=== PATIENT | male | born 1990 | race African-American/Black ===

== ENCOUNTER → 2020-09-06 10:58 | Outpatient (BNVA) | payer OTHER, SELFPAY | PROVIDERS: Visit Provider Physician Assistant Medical | DX: G56.03 Carpal tunnel syndrome, bilateral upper limbs (principal); S63.502A Unspecified sprain of left wrist, initial encounter; S63.501A Unspecified sprain of right wrist, initial encounter; X58.XXXA Exposure to other specified factors, initial encounter | CPT/HCPCS: 29125; 99203 ==

== ENCOUNTER → 2020-09-10 08:28 | Outpatient (BNVA) | payer OTHER, SELFPAY | PROVIDERS: Visit Provider Physician Assistant Medical | DX: S63.502D Unspecified sprain of left wrist, subsequent encounter (principal); S63.501D Unspecified sprain of right wrist, subsequent encounter; X58.XXXD Exposure to other specified factors, subsequent encounter; G56.03 Carpal tunnel syndrome, bilateral upper limbs | CPT/HCPCS: 73110; 73130; 99214 ==

== ENCOUNTER → 2020-09-17 09:55 | Outpatient (BNVA) | payer OTHER, SELFPAY | PROVIDERS: Visit Provider Physician Assistant Medical | DX: S63.501D Unspecified sprain of right wrist, subsequent encounter (principal); X58.XXXD Exposure to other specified factors, subsequent encounter; G56.01 Carpal tunnel syndrome, right upper limb | CPT/HCPCS: 99213 ==

== ENCOUNTER → 2020-09-23 09:29 | Outpatient (BNVA) | payer OTHER, SELFPAY | PROVIDERS: Visit Provider Physician Assistant Medical | DX: S63.501D Unspecified sprain of right wrist, subsequent encounter (principal); S63.502D Unspecified sprain of left wrist, subsequent encounter; X58.XXXD Exposure to other specified factors, subsequent encounter; G56.03 Carpal tunnel syndrome, bilateral upper limbs | CPT/HCPCS: 99213 ==

== ENCOUNTER 2020-10-05 08:30 | Outpatient (RCR) | payer OTHER, BC, SELFPAY ==
--- NOTE | 2020-10-15 09:18 | MHC.OT.DC ---
[address] [phone] F: [phone] Occupational Therapy Discharge Note Provider: Janessa Martel Diagnosis: Bilateral wrist sprain/carpal tunnel right > left Date of Surgery: Date of Evaluation: 09/16/20 Date of Discharge: Treatments to Date: 6 Cancellations to Date: 1 No Shows to Date: 0 Discharge Status: Achieved Goals Improved Function Independent with HEP Discharge Summary: Pt cx last appt and has no scheduled appt at this time. Complaint of right middle finger pain occassional low. Intermittent right dorsal wrist pain improved. New c/o mild occassional ulnar wrist pain. Unable to elicit pain today. Tolerated 20 min simulated work without inc sx. Denies CTS sx Electronically Signed By: Nessa Granda OT, CHT, CLT Reviewed/agree with student documentation: N/A Therapist: Please Sign and return to therapist, thank you for your referral.
== END 2020-10-15 09:19 | disposition other institution (70) ==
LOC: HO.OT 08:30
PROVIDERS: Visit Provider Physician Assistant Medical
DX: S63.512A Sprain of carpal joint of left wrist, initial encounter (principal); S63.511A Sprain of carpal joint of right wrist, initial encounter
CPT/HCPCS: 97033; 97035; 97110; 97165; 97530

== ENCOUNTER → 2020-10-08 09:18 | Outpatient (BNVA) | payer OTHER, SELFPAY | PROVIDERS: Visit Provider Physician Assistant Medical | DX: S63.512D Sprain of carpal joint of left wrist, subsequent encounter (principal); S63.511D Sprain of carpal joint of right wrist, subsequent encounter; X58.XXXD Exposure to other specified factors, subsequent encounter | CPT/HCPCS: 99213 ==

== ENCOUNTER 2020-10-18 09:13 | Outpatient (REF) | payer OTHER, SELFPAY ==
--- NOTE | ~2020-10-18 | XR_ITS ---
EXAMINATION: XR WRIST, RIGHT CLINICAL INFORMATION: Pain right wrist. COMPARISON: Radiographs right hand wrist 09/10/2020. TECHNIQUE: The right wrist is imaged in 3 views. FINDINGS: There is no acute or healing fracture, dislocation or destructive process. The ulnar variance is neutral. Bony mineralization is normal. No joint narrowing or erosive change or visible chondrocalcinosis. XR/XR wrist RT min 3V IMPRESSION: Unremarkable right wrist.
== END 2020-10-18 09:14 | disposition home or self-care (01) ==
LOC: HO.HOSX 09:13
PROVIDERS: Visit Provider Orthopaedic Surgery
DX: M77.8 Other enthesopathies, not elsewhere classified (principal)
CPT/HCPCS: 20550; 73110; 99202; J1100

== ENCOUNTER → 2020-12-01 11:34 | Outpatient (BNVA) | payer OTHER, SELFPAY | PROVIDERS: Visit Provider Orthopaedic Surgery | DX: M77.8 Other enthesopathies, not elsewhere classified (principal) | CPT/HCPCS: 99212 ==

== ENCOUNTER 2020-12-13 10:01 | Outpatient (REF) | payer OTHER, SELFPAY ==
--- NOTE | ~2020-12-13 | XR_ITS ---
EXAMINATION: XR WRIST, RIGHT CLINICAL INFORMATION: Pain. COMPARISON: Radiographs dated 10/18/2020. TECHNIQUE: PA, lateral, and oblique views of the right wrist. FINDINGS: The bones and soft tissues are normal. No fracture. Alignment is anatomic with normal joint spaces. There is a slight positive ulnar variance. No erosions or abnormal soft tissue calcifications. XR/XR wrist RT min 3V IMPRESSION: Normal right wrist.
== END 2020-12-13 10:02 | disposition home or self-care (01) ==
LOC: HO.HOSX 10:01
PROVIDERS: Visit Provider Orthopaedic Surgery
DX: M77.8 Other enthesopathies, not elsewhere classified (principal)
CPT/HCPCS: 73110; 99212